=== PATIENT | female | born 1985 | race Caucasian/White ===

== ENCOUNTER 2020-10-21 05:42 | Day surgery (SDC) | payer OTHER | END 2020-10-21 18:45 | disposition home or self-care (01) | LOC: CIR.AMB 05:42 | PROVIDERS: ATTEND Surgery | DX: D05.12 Intraductal carcinoma in situ of left breast (principal); Z20.822 Contact with and (suspected) exposure to COVID-19; N62 Hypertrophy of breast ==

== ENCOUNTER 2021-08-04 11:44 | Emergency (ER) | payer OTHER ==
[~2021-08-04] VITALS: Ht 157.5 cm; Wt 66.2 kg
== END 2021-08-04 16:03 | disposition home or self-care (01) ==
LOC: ER 11:44
DX: R31.0 Gross hematuria (principal)

== ENCOUNTER 2021-08-06 12:20 | Emergency (ER) | payer OTHER ==
[~2021-08-06] VITALS: Ht 160 cm; Wt 66.7 kg
== END 2021-08-06 17:59 | disposition home or self-care (01) ==
LOC: ER 12:20
DX: N93.9 Abnormal uterine and vaginal bleeding, unspecified (principal)

== ENCOUNTER 2023-01-03 14:30 | Inpatient (IN) | payer OTHER ==
[~2023-01-03] VITALS: Ht 152.4 cm; Wt 101.2 kg
[2023-01-15] MEDS ORDERED: SYNTHROID50 MCG PO (15:15)
[2023-01-15] MEDS ORDERED: PRENATAL TABLE1 EAC1 PO (15:16)
[2023-01-15] MEDS ORDERED: OMEGA 3 1,0001 EACH PO (15:16)
[2023-01-15] MEDS ORDERED: IRON236 MG PO (15:16)
== END 2023-01-18 14:34 | disposition home or self-care (01) | DRG 806 ==
LOC: LDR 01-15 14:20 → OB/GYN 01-16 07:51 → SURG 01-22 14:30
PROVIDERS: ADMIT Specialist; ATTEND Specialist
PROC: 4A1HXCZ Monitoring of Products of Conception, Cardiac Rate, External Approach (ICD-10-PCS; 2023-01-15)
PROC: 10E0XZZ Delivery of Products of Conception, External Approach (ICD-10-PCS; principal; 2023-01-16)
PROC: 0KQM0ZZ Repair Perineum Muscle, Open Approach (ICD-10-PCS; 2023-01-16)
DX: O71.4 Obstetric high vaginal laceration alone (principal); O41.03X0 Oligohydramnios, third trimester, not applicable or unspecified; Z37.0 Single live birth; O13.4 Gestational [pregnancy-induced] hypertension without significant proteinuria, complicating childbirth; O99.214 Obesity complicating childbirth; E66.8 Other obesity; Z3A.39 39 weeks gestation of pregnancy; Z20.822 Contact with and (suspected) exposure to COVID-19